=== PATIENT | male | born 1950 | race Two or more races ===

== ENCOUNTER → 2016-10-12 | Outpatient (CLI) | payer OTHER ==
[2016-10-12 12:26] LABS: Basophils # (auto) 0 uL; Basophils % (auto) 0.9 % (0.0-2.0); Eosinophils # (auto) 0.2 uL; Eosinophils % (auto) 3.9 % (0.0-7.0); Hematocrit 38.2 % (41.0-53.0); Hemoglobin 12.5 g/dL (13.5-17.5); Lymphocytes # (auto) 0.9 uL; Lymphocytes % (auto) 21.3 % (10.0-50.0); Mean Corpuscular Hgb Conc. 32.8 g/dL (32.0-36.0); Mean Corpuscular Volume 85.5 fL (80.0-100.0); Mean Platelet Volume 9.2 fL (7.4-10.4); Monocytes # (auto) 0.4 uL; Neutrophils # (auto) 2.7 uL; Neutrophils % (auto) 63.9 % (37.0-80.0); Platelet Count (auto) 345 10^3/uL (140-450); Red Cell Distribution Width 16.5 % (11.6-16.0); White Blood Cell 4.2 10^3/uL (4.4-10.8)
[2016-10-12 12:46] LABS: Vitamin B12 > 2000 pg/mL (211-911)
[2016-10-12 14:17] LABS: Temperature: 22.2 C (20.0-25.0)
== END | disposition home or self-care (01) ==
LOC: LAB 08:34
PROVIDERS: ATTEND Internal Medicine Cardiovascular Disease
DX: D64.9 Anemia, unspecified (principal); D52.9 Folate deficiency anemia, unspecified; D51.9 Vitamin B12 deficiency anemia, unspecified
CPT/HCPCS: 36415; 82607; 82746; 85025

== ENCOUNTER → 2016-11-15 | Outpatient (CLI) | payer OTHER | END | disposition home or self-care (01) | LOC: Rad HDHVI 07:47 | PROVIDERS: ATTEND Internal Medicine Cardiovascular Disease | DX: I10 Essential (primary) hypertension (principal); E78.00 Pure hypercholesterolemia, unspecified; E78.5 Hyperlipidemia, unspecified; R06.02 Shortness of breath | CPT/HCPCS: 93306 ==

== ENCOUNTER → 2016-11-24 | Outpatient (CLI) | payer OTHER | END | disposition home or self-care (01) | LOC: Rad HDHVI 08:38 | PROVIDERS: ATTEND Internal Medicine Cardiovascular Disease | DX: R06.02 Shortness of breath (principal); E78.5 Hyperlipidemia, unspecified | CPT/HCPCS: 93880 ==

== ENCOUNTER → 2016-12-04 | Outpatient (CLI) | payer OTHER ==
[~2016-12-04] VITALS: Ht 188 cm; Wt 88.9 kg
== END | disposition home or self-care (01) ==
LOC: Rad HDHVI 08:39
PROVIDERS: ATTEND Internal Medicine Cardiovascular Disease
DX: I10 Essential (primary) hypertension (principal); R20.0 Anesthesia of skin
CPT/HCPCS: 78452; 93017; 96374; A9500

== ENCOUNTER → 2016-12-06 | Outpatient (CLI) | payer OTHER | END | disposition home or self-care (01) | LOC: Rad HDHVI 13:36 | PROVIDERS: ATTEND Internal Medicine Cardiovascular Disease | DX: M47.816 Spondylosis without myelopathy or radiculopathy, lumbar region (principal); M48.06 Spinal stenosis, lumbar region; K83.8 Other specified diseases of biliary tract; M51.36 Other intervertebral disc degeneration, lumbar region | CPT/HCPCS: 72131 ==

== ENCOUNTER → 2017-04-13 | Outpatient (CLI) | payer OTHER ==
[~2017-04-13] MED LIST: IOHEXOL 350 MG/ML 100ML IJ ONE; READI-CAT 2 (BARIUM SULF)(VANILLA SMOOTHIE) 450ML ONE
[2017-04-13 09:05] VITALS: BP 157/110
[2017-04-13 09:30] VITALS: BP 141/93
[2017-04-13 10:30] VITALS: BP 148/86
== END | disposition home or self-care (01) ==
LOC: Rad HDHVI 08:58
PROVIDERS: ATTEND Internal Medicine Cardiovascular Disease
DX: R91.8 Other nonspecific abnormal finding of lung field (principal); R16.0 Hepatomegaly, not elsewhere classified; K22.5 Diverticulum of esophagus, acquired
CPT/HCPCS: 71260; 74177; 82565; G0463; Q9967

== ENCOUNTER → 2017-06-25 | Outpatient (CLI) | payer MEDICARE, OTHER ==
[2017-06-25 13:13] LABS: Eosinophils # (auto) 0.1 uL; Hemoglobin 10.7 g/dL (13.5-17.5); Lymphocytes # (auto) 1.4 uL; Mean Platelet Volume 8.1 fL (6.9-10.8); Monocytes # (auto) 0.9 uL
[2017-06-25 13:17] LABS: Basophils # (auto) 0.1 uL; Basophils % (auto) 0.6 % (0.0-2.0); Eosinophils % (auto) 1.2 % (0.0-7.0); Hematocrit 32.7 % (41.0-53.0); Lymphocytes % (auto) 16.5 % (10.0-50.0); Mean Corpuscular Hemoglobin 26.8 pg (28.0-32.0); Mean Corpuscular Hgb Conc. 32.7 g/dL (32.0-36.0); Monocytes % (auto) 9.9 % (0.0-12.0); Neutrophils # (auto) 6.2 uL; Neutrophils % (auto) 71.8 % (37.0-80.0); Nucleated Red Blood Cells % 0.1 %; Platelet Count (auto) 458 10^3/uL (140-450); White Blood Cell 8.7 10^3/uL (4.4-10.8)
[2017-06-25 13:19] LABS: Red Cell Distribution Width 21.7 % (11.8-14.3)
[2017-06-25 13:27] LABS: Albumin 2.4 g/dL (3.4-5.0); Potassium 4.3 mmol/L (3.5-5.1)
[2017-06-25 13:33] LABS: BUN/Creatinine Ratio 17.9; Calcium 8.7 mg/dL (8.5-10.1)
[2017-06-25 13:35] LABS: Bilirubin, Total 0.7 mg/dL (0.2-1.0); Total Protein 7.2 g/dL (6.4-8.2)
[2017-06-25 14:15] LABS: Anisocytosis Slight; Hypochromia Slight; Platelet Estimate Increased
== END | disposition home or self-care (01) ==
LOC: LAB 10:27
PROVIDERS: ATTEND Internal Medicine Cardiovascular Disease
DX: I10 Essential (primary) hypertension (principal); D64.9 Anemia, unspecified
CPT/HCPCS: 36415; 80053; 85025

== ENCOUNTER → 2017-07-30 | Outpatient (CLI) | payer MEDICARE, OTHER | END | disposition home or self-care (01) | LOC: Rad HDHVI 09:17 | PROVIDERS: ATTEND Internal Medicine Cardiovascular Disease | DX: M48.07 Spinal stenosis, lumbosacral region (principal); M12.88 Other specific arthropathies, not elsewhere classified, other specified site | CPT/HCPCS: 72131 ==

== ENCOUNTER 2018-01-11 14:29 | Inpatient (IN) | payer MEDICARE, OTHER ==
[~2018-01-11] VITALS: Ht 185.4 cm; Wt 101.6 kg
[2018-01-11] MEDS ORDERED: SODIUM CHLORIDE 0.9% 500 ML IV ONE (14:42)
[2018-01-11] MEDS ORDERED: NITROGLYCERIN 0.4 MG SL TAB SL PRN (15:30)
[2018-01-11] MEDS ORDERED: ONDANSETRON HCL 4 MG/2 ML VIAL IV PRN (15:30)
[2018-01-11 15:33] LABS: Basophils # (auto) 0 uL; Basophils % (auto) 0.2 % (0.0-2.0); Eosinophils # (auto) 0.2 uL; Eosinophils % (auto) 1.4 % (0.0-7.0); Hematocrit 14.1 % (41.0-53.0); Lymphocytes # (auto) 1.3 uL; Lymphocytes % (auto) 7.8 % (10.0-50.0); Mean Corpuscular Hgb Conc. 26.6 g/dL (32.0-36.0); Mean Corpuscular Volume 60.3 fL (80.0-100.0); Monocytes # (auto) 0.8 uL; Monocytes % (auto) 4.4 % (0.0-12.0); Neutrophils # (auto) 14.7 uL; Neutrophils % (auto) 86.2 % (37.0-80.0); Nucleated Red Blood Cells % 0.9 %; Platelet Count (auto) 692 10^3/uL (140-450); Red Blood Cells 2.34 10^6/uL (4.5-5.90); White Blood Cell 17.1 10^3/uL (4.4-10.8)
[2018-01-11 15:34] LABS: Red Cell Distribution Width 23.7 % (11.8-14.3)
[2018-01-11 15:41] LABS: Hemoglobin 3.8 g/dL (13.5-17.5)
[2018-01-11 15:56] LABS: Albumin 1.4 g/dL (3.4-5.0); BUN/Creatinine Ratio 36.7; Bilirubin, Total 0.8 mg/dL (0.2-1.0); Calcium 7.8 mg/dL (8.5-10.1); Magnesium 2.6 mg/dL (1.6-2.6); Potassium 4.7 mmol/L (3.5-5.1); Total Protein 6.2 g/dL (6.4-8.2)
[2018-01-11] MEDS: fentaNYL 100MCG/HR 100 MCG/HR PAT TD SCH (16:52)
[2018-01-11] MEDS: PIPERACILLIN-TAZO 4.5GM 100 ML IV SCH ×2 (16:54→23:30)
[2018-01-11] MEDS: MEPERIDINE HCL (50 MG/ML) 1 ML VIAL IV PRN (16:55)
[2018-01-11 18:51] VITALS: BP 117/74
[2018-01-11] MEDS: MORPHINE SULF 30 mg ER tab PO SCH (21:20)
[2018-01-11 22:02] VITALS: BP 105/69
[2018-01-11 22:16] VITALS: BP 108/64
[2018-01-11 23:01] VITALS: BP 104/68
[2018-01-11 23:40] VITALS: BP 117/75
[2018-01-12] VITALS (9 sets, daily range): BP systolic 103–139; BP diastolic 63–74
[2018-01-12] MEDS: MEPERIDINE HCL (50 MG/ML) 1 ML VIAL IV PRN ×2 (01:47→11:27)
[2018-01-12] MEDS: MORPHINE SULF 30 mg ER tab PO SCH ×4 (06:39→21:30)
[2018-01-12] MEDS: PIPERACILLIN-TAZO 4.5GM 100 ML IV SCH ×3 (07:34→23:16)
[2018-01-12 08:57] LABS: Basophils # (auto) 0.1 uL; Neutrophils # (auto) 19.8 uL
[2018-01-12 08:59] LABS: Basophils % (auto) 0.4 % (0.0-2.0); Eosinophils # (auto) 0.3 uL; Eosinophils % (auto) 1.5 % (0.0-7.0); Hematocrit 20.7 % (41.0-53.0); Lymphocytes # (auto) 1.6 uL; Lymphocytes % (auto) 6.9 % (10.0-50.0); Mean Corpuscular Hemoglobin 20.6 pg (28.0-32.0); Mean Corpuscular Hgb Conc. 30.7 g/dL (32.0-36.0); Monocytes % (auto) 4.3 % (0.0-12.0); Neutrophils % (auto) 86.9 % (37.0-80.0); Platelet Count (auto) 584 10^3/uL (140-450); Red Blood Cells 3.09 10^6/uL (4.5-5.90); White Blood Cell 22.8 10^3/uL (4.4-10.8)
[2018-01-12 09:09] LABS: Hemoglobin 6.3 g/dL (13.5-17.5); Red Cell Distribution Width 28.7 % (11.8-14.3)
[2018-01-12 09:18] LABS: Calcium 7.4 mg/dL (8.5-10.1); Potassium 4.6 mmol/L (3.5-5.1)
[2018-01-12] MEDS ORDERED: HYDR-4683 PO (12:24)
[2018-01-12] MEDS ORDERED: GABA-339 PO (12:24)
[2018-01-12] MEDS ORDERED: RIVA20TA PO (12:24)
[2018-01-12] MEDS ORDERED: FENT75DI2 TD (12:24)
[2018-01-12] MEDS ORDERED: BIS10RS PR (12:24)
[2018-01-12] MEDS ORDERED: CYCL1TAB18 PO (12:24)
[2018-01-12] MEDS ORDERED: FURO20TA3 PO (12:24)
[2018-01-12] MEDS ORDERED: LORA2TAB89 PO (12:24)
[2018-01-12] MEDS ORDERED: TEMA30CA5 PO (12:24)
[2018-01-12] MEDS ORDERED: PRE5T PO (12:24)
[2018-01-12] MEDS ORDERED: MORP60TA25 PO (18:08)
[2018-01-13 05:00] VITALS: BP 122/39
[2018-01-13] MEDS: MORPHINE SULF 30 mg ER tab PO SCH ×3 (05:48→22:00)
[2018-01-13] MEDS: PIPERACILLIN-TAZO 4.5GM 100 ML IV SCH (07:00)
[2018-01-13 08:43] VITALS: BP 122/64
[2018-01-13] MEDS: BOOST PLUS 8 ounce PO SCH ×3 (08:47→18:02)
[2018-01-13] MEDS: fentaNYL 100MCG/HR 100 MCG/HR PAT TD SCH (11:39)
[2018-01-13 13:50] VITALS: BP 116/67
[2018-01-13 17:16] VITALS: BP 131/79
[2018-01-13] MEDS ORDERED: VANCOMYCIN PER PHARMACY 1,000 MG IV SCH (19:00)
[2018-01-13] MEDS: VANCOMYCIN 1,250 MG in D5W 5% 250 ML IV SCH (21:54)
[2018-01-13 22:00] VITALS: BP 124/98
[2018-01-13] MEDS: D5W 5% IV SCH (23:26)
[2018-01-13] MEDS: PIPERACILLIN TAZO IV SCH (23:26)
[2018-01-14 05:00] VITALS: BP 113/76
[2018-01-14] MEDS: D5W 5% IV SCH ×3 (06:49→23:21)
[2018-01-14] MEDS: PIPERACILLIN TAZO IV SCH ×3 (06:49→23:21)
[2018-01-14 06:51] LABS: Basophils # (auto) 0 uL; Lymphocytes # (auto) 1.2 uL; Nucleated Red Blood Cells % 0.2 %
[2018-01-14 06:54] LABS: Basophils % (auto) 0.1 % (0.0-2.0); Eosinophils # (auto) 0.3 uL; Eosinophils % (auto) 1.1 % (0.0-7.0); Hematocrit 23.8 % (41.0-53.0); Lymphocytes % (auto) 5.1 % (10.0-50.0); Mean Corpuscular Hemoglobin 20.9 pg (28.0-32.0); Mean Corpuscular Volume 72.1 fL (80.0-100.0); Monocytes # (auto) 1.3 uL; Monocytes % (auto) 5.5 % (0.0-12.0); Neutrophils # (auto) 20.6 uL; Neutrophils % (auto) 88.2 % (37.0-80.0); Platelet Count (auto) 559 10^3/uL (140-450); Red Blood Cells 3.29 10^6/uL (4.5-5.90); White Blood Cell 23.3 10^3/uL (4.4-10.8)
[2018-01-14 06:57] LABS: Red Cell Distribution Width 29.9 % (11.8-14.3)
[2018-01-14 06:59] LABS: Hemoglobin 6.9 g/dL (13.5-17.5)
[2018-01-14 07:01] LABS: BUN/Creatinine Ratio 39.3; Calcium 7.2 mg/dL (8.5-10.1)
[2018-01-14 09:00] VITALS: BP_SYST 100; BP_SYST 119; BP_DIAS 50; BP_DIAS 73
[2018-01-14] MEDS: BOOST PLUS 8 ounce PO SCH ×3 (10:50→18:02)
[2018-01-14] MEDS: VANCOMYCIN 1,250 MG in D5W 5% 250 ML IV SCH ×2 (10:50→21:02)
[2018-01-14 13:00] VITALS: BP 112/65
[2018-01-14] MEDS: PRO-STAT 64 30ML PO SCH ×2 (14:03→18:02)
[2018-01-14] MEDS: MORPHINE SULF 30 mg ER tab PO SCH ×2 (14:03→22:00)
[2018-01-14] MEDS: LORazepam 0.5 MG TAB PO PRN (14:36)
[2018-01-14] MEDS: fentaNYL 100MCG/HR 100 MCG/HR PAT TD SCH (15:33)
[2018-01-14 17:00] VITALS: BP 101/67
[2018-01-14 22:00] VITALS: BP 103/53
[2018-01-15] VITALS (7 sets, daily range): BP systolic 119–140; BP diastolic 67–85
[2018-01-15] MEDS: PIPERACILLIN TAZO IV SCH ×3 (05:48→23:00)
[2018-01-15] MEDS: D5W 5% IV SCH ×3 (05:48→23:00)
[2018-01-15] MEDS: MORPHINE SULF 30 mg ER tab PO SCH ×3 (06:28→22:09)
[2018-01-15] MEDS: BOOST PLUS 8 ounce PO SCH ×3 (08:11→18:45)
[2018-01-15] MEDS: PRO-STAT 64 30ML PO SCH ×3 (08:11→18:45)
[2018-01-15] MEDS: VANCOMYCIN 1,250 MG in D5W 5% 250 ML IV SCH (10:07)
[2018-01-15 13:04] LABS: Basophils # (auto) 0 uL; Basophils % (auto) 0.1 % (0.0-2.0); Eosinophils # (auto) 0.1 uL; Hemoglobin 7.3 g/dL (13.5-17.5); Lymphocytes # (auto) 0.7 uL; Monocytes # (auto) 0.9 uL; Neutrophils # (auto) 21.2 uL; Nucleated Red Blood Cells % 0.2 %
[2018-01-15 13:06] LABS: Eosinophils % (auto) 0.3 % (0.0-7.0); Hematocrit 24.9 % (41.0-53.0); Mean Corpuscular Hemoglobin 20.7 pg (28.0-32.0); Mean Corpuscular Hgb Conc. 29.5 g/dL (32.0-36.0); Mean Corpuscular Volume 70.2 fL (80.0-100.0); Monocytes % (auto) 3.9 % (0.0-12.0); Neutrophils % (auto) 92.7 % (37.0-80.0); Platelet Count (auto) 542 10^3/uL (140-450); Red Blood Cells 3.54 10^6/uL (4.5-5.90); White Blood Cell 22.8 10^3/uL (4.4-10.8)
[2018-01-15 13:17] LABS: Red Cell Distribution Width 31.7 % (11.8-14.3)
[2018-01-15 13:35] LABS: BUN/Creatinine Ratio 37.5; Calcium 7.6 mg/dL (8.5-10.1); Potassium 3.8 mmol/L (3.5-5.1)
[2018-01-15] MEDS ORDERED: VANCOMYCIN 1,250 MG in D5W 5% 250 ML IV SCH (23:00)
[2018-01-16] VITALS (13 sets, daily range): BP systolic 106–128; BP diastolic 61–83
[2018-01-16] MEDS: PIPERACILLIN TAZO IV SCH ×3 (06:38→23:00)
[2018-01-16] MEDS: MORPHINE SULF 30 mg ER tab PO SCH ×3 (06:38→21:41)
[2018-01-16] MEDS: D5W 5% IV SCH ×3 (06:38→23:00)
[2018-01-16 08:55] LABS: Eosinophils # (auto) 0.3 uL; Nucleated Red Blood Cells % 0.1 %; Platelet Count (auto) 462 10^3/uL (140-450)
[2018-01-16 08:57] LABS: Basophils # (auto) 0 uL; Basophils % (auto) 0.3 % (0.0-2.0); Eosinophils % (auto) 1.7 % (0.0-7.0); Hematocrit 21.8 % (41.0-53.0); Lymphocytes # (auto) 1.4 uL; Lymphocytes % (auto) 7.3 % (10.0-50.0); Mean Corpuscular Hemoglobin 20.3 pg (28.0-32.0); Mean Corpuscular Hgb Conc. 28.8 g/dL (32.0-36.0); Mean Corpuscular Volume 70.4 fL (80.0-100.0); Monocytes % (auto) 5.2 % (0.0-12.0); Neutrophils % (auto) 85.5 % (37.0-80.0); White Blood Cell 18.8 10^3/uL (4.4-10.8)
[2018-01-16 09:02] LABS: Calcium 7.4 mg/dL (8.5-10.1); Potassium 3.6 mmol/L (3.5-5.1)
[2018-01-16 09:44] LABS: Red Cell Distribution Width 31.4 % (11.8-14.3)
[2018-01-16 09:47] LABS: Hemoglobin 6.3 g/dL (13.5-17.5)
[2018-01-16] MEDS ORDERED: VANCOMYCIN 1,250 MG in D5W 5% 250 ML IV SCH ×2 (10:00→20:00)
[2018-01-16] MEDS: PRO-STAT 64 30ML PO SCH ×3 (10:07→18:02)
[2018-01-16] MEDS: BOOST PLUS 8 ounce PO SCH ×3 (10:07→18:02)
[2018-01-16] MEDS: MEPERIDINE HCL (50 MG/ML) 1 ML VIAL IV PRN (19:04)
[2018-01-16] MEDS: VANCOMYCIN 1,250 MG in D5W 5% 250 ML IV SCH (21:10)
[2018-01-17] VITALS (8 sets, daily range): BP systolic 114–132; BP diastolic 66–81
[2018-01-17] MEDS: MORPHINE SULF 30 mg ER tab PO SCH ×3 (05:41→22:58)
[2018-01-17] MEDS: PIPERACILLIN TAZO IV SCH ×2 (06:01→14:51)
[2018-01-17] MEDS: D5W 5% IV SCH ×2 (06:01→14:51)
[2018-01-17 06:53] LABS: Basophils # (auto) 0 uL; Basophils % (auto) 0.1 % (0.0-2.0); Eosinophils # (auto) 0.4 uL; Hemoglobin 9.4 g/dL (13.5-17.5); Lymphocytes % (auto) 6.4 % (10.0-50.0); Nucleated Red Blood Cells % 0.1 %
[2018-01-17 06:55] LABS: Eosinophils % (auto) 2.1 % (0.0-7.0); Hematocrit 29.9 % (41.0-53.0); Lymphocytes # (auto) 1.1 uL; Mean Corpuscular Hemoglobin 23.2 pg (28.0-32.0); Mean Corpuscular Hgb Conc. 31.3 g/dL (32.0-36.0); Mean Corpuscular Volume 74.1 fL (80.0-100.0); Monocytes % (auto) 5.4 % (0.0-12.0); Neutrophils # (auto) 15.3 uL; Platelet Count (auto) 394 10^3/uL (140-450); Red Blood Cells 4.04 10^6/uL (4.5-5.90); White Blood Cell 17.8 10^3/uL (4.4-10.8)
[2018-01-17 07:16] LABS: BUN/Creatinine Ratio 41.2; Calcium 7.3 mg/dL (8.5-10.1); Potassium 3.6 mmol/L (3.5-5.1)
[2018-01-17 07:34] LABS: Red Cell Distribution Width 29.2 % (11.8-14.3)
[2018-01-17] MEDS: BOOST PLUS 8 ounce PO SCH ×3 (08:04→17:33)
[2018-01-17] MEDS: PRO-STAT 64 30ML PO SCH ×3 (08:04→17:33)
[2018-01-17] MEDS: VANCOMYCIN 1,250 MG in D5W 5% 250 ML IV SCH ×2 (08:04→17:33)
[2018-01-17] MEDS: MEPERIDINE HCL (50 MG/ML) 1 ML VIAL IV PRN ×4 (08:56→23:03)
[2018-01-17] MEDS: fentaNYL 100MCG/HR 100 MCG/HR PAT TD SCH (16:25)
[2018-01-17] MEDS: SALINE 0.65 % NASAL SPRAY 45ML BOTTLE EACHNOSTRI SCH ×2 (18:46→22:58)
[2018-01-18] MEDS: D5W 5% IV SCH ×3 (00:53→17:39)
[2018-01-18] MEDS: PIPERACILLIN TAZO IV SCH ×3 (00:53→17:39)
[2018-01-18 05:00] VITALS: BP 128/86
[2018-01-18] MEDS: VANCOMYCIN 1,250 MG in D5W 5% 250 ML IV SCH ×2 (05:24→14:00)
[2018-01-18] MEDS: MORPHINE SULF 30 mg ER tab PO SCH ×3 (06:31→21:50)
[2018-01-18] MEDS: SALINE 0.65 % NASAL SPRAY 45ML BOTTLE EACHNOSTRI SCH ×4 (06:32→21:50)
[2018-01-18 06:34] LABS: Basophils # (auto) 0 uL; Basophils % (auto) 0.2 % (0.0-2.0); Eosinophils # (auto) 0.4 uL; Eosinophils % (auto) 2.6 % (0.0-7.0); Hematocrit 27.1 % (41.0-53.0); Hemoglobin 8.5 g/dL (13.5-17.5); Lymphocytes # (auto) 0.9 uL; Lymphocytes % (auto) 5.6 % (10.0-50.0); Nucleated Red Blood Cells % 0.1 %
[2018-01-18 06:43] LABS: Mean Corpuscular Hemoglobin 23.3 pg (28.0-32.0); Mean Corpuscular Hgb Conc. 31.4 g/dL (32.0-36.0); Mean Corpuscular Volume 74.1 fL (80.0-100.0); Monocytes # (auto) 0.8 uL; Monocytes % (auto) 4.8 % (0.0-12.0); Neutrophils # (auto) 14.3 uL; Neutrophils % (auto) 86.8 % (37.0-80.0); Platelet Count (auto) 339 10^3/uL (140-450); Red Blood Cells 3.65 10^6/uL (4.5-5.90); White Blood Cell 16.5 10^3/uL (4.4-10.8)
[2018-01-18 06:47] LABS: BUN/Creatinine Ratio 43.8; Calcium 7.2 mg/dL (8.5-10.1); Potassium 3.5 mmol/L (3.5-5.1)
[2018-01-18 06:58] LABS: Red Cell Distribution Width 29.5 % (11.8-14.3)
[2018-01-18 08:00] VITALS: BP 137/82
[2018-01-18] MEDS: PRO-STAT 64 30ML PO SCH ×3 (08:00→18:25)
[2018-01-18] MEDS: BOOST PLUS 8 ounce PO SCH ×3 (08:00→18:25)
[2018-01-18] MEDS: MEPERIDINE HCL (50 MG/ML) 1 ML VIAL IV PRN ×5 (08:45→23:35)
[2018-01-18 12:00] VITALS: BP 106/75
[2018-01-18 17:00] VITALS: BP 110/79
[2018-01-18 22:00] VITALS: BP 112/79
[2018-01-18] MEDS: VANCOMYCIN 1GM/250ML 250 ML IV SCH (23:34)
[2018-01-19] VITALS (7 sets, daily range): BP systolic 103–126; BP diastolic 69–78
[2018-01-19] MEDS: PIPERACILLIN TAZO IV SCH ×3 (00:30→16:50)
[2018-01-19] MEDS: D5W 5% IV SCH ×3 (00:30→16:50)
[2018-01-19 06:42] LABS: Basophils # (auto) 0 uL; Eosinophils # (auto) 0.4 uL; Hemoglobin 8.7 g/dL (13.5-17.5); Lymphocytes # (auto) 1.1 uL; Mean Corpuscular Hemoglobin 23.1 pg (28.0-32.0); Monocytes # (auto) 0.7 uL
[2018-01-19] MEDS: SALINE 0.65 % NASAL SPRAY 45ML BOTTLE EACHNOSTRI SCH ×4 (06:42→21:44)
[2018-01-19] MEDS: MEPERIDINE HCL (50 MG/ML) 1 ML VIAL IV PRN ×5 (06:43→22:03)
[2018-01-19 06:44] LABS: Basophils % (auto) 0.1 % (0.0-2.0); Eosinophils % (auto) 2.5 % (0.0-7.0); Hematocrit 28.5 % (41.0-53.0); Lymphocytes % (auto) 7.1 % (10.0-50.0); Mean Corpuscular Hgb Conc. 30.5 g/dL (32.0-36.0); Mean Corpuscular Volume 75.6 fL (80.0-100.0); Monocytes % (auto) 4.3 % (0.0-12.0); Neutrophils # (auto) 13.3 uL; Platelet Count (auto) 327 10^3/uL (140-450); Red Blood Cells 3.77 10^6/uL (4.5-5.90); White Blood Cell 15.5 10^3/uL (4.4-10.8)
[2018-01-19] MEDS: MORPHINE SULF 30 mg ER tab PO SCH ×3 (06:47→21:44)
[2018-01-19 06:53] LABS: Red Cell Distribution Width 30.2 % (11.8-14.3)
[2018-01-19 06:57] LABS: Calcium 7.3 mg/dL (8.5-10.1); Potassium 3.6 mmol/L (3.5-5.1)
[2018-01-19] MEDS: PRO-STAT 64 30ML PO SCH ×3 (08:32→18:19)
[2018-01-19] MEDS: BOOST PLUS 8 ounce PO SCH ×3 (08:32→18:18)
[2018-01-19] MEDS: VANCOMYCIN 1GM/250ML 250 ML IV SCH (23:06)
[2018-01-20] MEDS: D5W 5% IV SCH ×3 (00:17→16:44)
[2018-01-20] MEDS: PIPERACILLIN TAZO IV SCH ×3 (00:17→16:44)
[2018-01-20] MEDS: MEPERIDINE HCL (50 MG/ML) 1 ML VIAL IV PRN ×6 (00:41→13:42)
[2018-01-20 05:00] VITALS: BP 118/76
[2018-01-20] MEDS: SALINE 0.65 % NASAL SPRAY 45ML BOTTLE EACHNOSTRI SCH ×4 (05:56→21:37)
[2018-01-20] MEDS: MORPHINE SULF 30 mg ER tab PO SCH ×3 (05:56→21:37)
[2018-01-20 09:00] VITALS: BP 111/74
[2018-01-20] MEDS: PRO-STAT 64 30ML PO SCH ×3 (09:15→18:00)
[2018-01-20] MEDS: BOOST PLUS 8 ounce PO SCH ×3 (09:15→18:00)
[2018-01-20 09:57] LABS: Basophils # (auto) 0 uL; Eosinophils # (auto) 0.3 uL; Hemoglobin 8.4 g/dL (13.5-17.5); Monocytes # (auto) 0.9 uL; Neutrophils # (auto) 15.1 uL
[2018-01-20 09:59] LABS: Basophils % (auto) 0.1 % (0.0-2.0); Eosinophils % (auto) 1.7 % (0.0-7.0); Hematocrit 27.6 % (41.0-53.0); Lymphocytes # (auto) 0.7 uL; Lymphocytes % (auto) 4.2 % (10.0-50.0); Mean Corpuscular Hemoglobin 23.4 pg (28.0-32.0); Mean Corpuscular Hgb Conc. 30.5 g/dL (32.0-36.0); Mean Corpuscular Volume 76.7 fL (80.0-100.0); Monocytes % (auto) 5.1 % (0.0-12.0); Neutrophils % (auto) 88.9 % (37.0-80.0); Platelet Count (auto) 305 10^3/uL (140-450); Red Blood Cells 3.59 10^6/uL (4.5-5.90)
[2018-01-20 10:10] LABS: Calcium 7.7 mg/dL (8.5-10.1); Potassium 3.9 mmol/L (3.5-5.1)
[2018-01-20 13:00] VITALS: BP 117/74
[2018-01-20] MEDS: fentaNYL 100MCG/HR 100 MCG/HR PAT TD SCH (16:44)
[2018-01-20 17:50] VITALS: BP 125/78
[2018-01-20] MEDS: MORPHINE SULF INJ 2 MG/ML SYRINGE 1ML IV PRN ×2 (18:19→23:07)
[2018-01-20 20:00] VITALS: BP 106/67
[2018-01-20] MEDS: ASCORBIC ACID 500 MG TAB PO SCH (21:37)
[2018-01-20 22:30] VITALS: BP 106/67
[2018-01-20] MEDS: VANCOMYCIN 1GM/250ML 250 ML IV SCH (23:07)
[2018-01-21] VITALS (7 sets, daily range): BP systolic 101–126; BP diastolic 63–84
[2018-01-21] MEDS: PIPERACILLIN TAZO IV SCH ×3 (00:56→17:50)
[2018-01-21] MEDS: D5W 5% IV SCH ×3 (00:56→17:50)
[2018-01-21] MEDS: SALINE 0.65 % NASAL SPRAY 45ML BOTTLE EACHNOSTRI SCH ×3 (06:05→18:00)
[2018-01-21] MEDS: MORPHINE SULF 30 mg ER tab PO SCH ×3 (06:06→22:00)
[2018-01-21 06:38] LABS: Basophils # (auto) 0 uL; Eosinophils # (auto) 0.4 uL; Monocytes # (auto) 0.7 uL; Monocytes % (auto) 3.8 % (0.0-12.0); Neutrophils # (auto) 15.6 uL; Nucleated Red Blood Cells % 0.1 %; White Blood Cell 17.6 10^3/uL (4.4-10.8)
[2018-01-21 06:40] LABS: Basophils % (auto) 0.2 % (0.0-2.0); Eosinophils % (auto) 2.4 % (0.0-7.0); Hematocrit 29.2 % (41.0-53.0); Lymphocytes # (auto) 0.9 uL; Lymphocytes % (auto) 5.3 % (10.0-50.0); Mean Corpuscular Hemoglobin 23.7 pg (28.0-32.0); Mean Corpuscular Hgb Conc. 30.7 g/dL (32.0-36.0); Mean Corpuscular Volume 77.1 fL (80.0-100.0); Neutrophils % (auto) 88.3 % (37.0-80.0); Platelet Count (auto) 344 10^3/uL (140-450); Red Blood Cells 3.78 10^6/uL (4.5-5.90)
[2018-01-21 06:49] LABS: Red Cell Distribution Width 30.7 % (11.8-14.3)
[2018-01-21] MEDS: MORPHINE SULF INJ 2 MG/ML SYRINGE 1ML IV PRN (06:56)
[2018-01-21 06:57] LABS: Calcium 7.7 mg/dL (8.5-10.1)
[2018-01-21] MEDS: PRO-STAT 64 30ML PO SCH ×3 (08:00→18:00)
[2018-01-21] MEDS: BOOST PLUS 8 ounce PO SCH ×3 (08:24→18:00)
[2018-01-21] MEDS: LORazepam 0.5 MG TAB PO PRN (10:14)
[2018-01-21] MEDS: ASCORBIC ACID 500 MG TAB PO SCH ×2 (10:14→22:00)
[2018-01-21] MEDS: MULTIPLE VITAMINS W/ MINERALS TAB PO SCH (10:14)
[2018-01-21 11:03] LABS: Eosinophils # (auto) 0.1 uL; Hematocrit 27.4 % (41.0-53.0); Hemoglobin 8.4 g/dL (13.5-17.5); Lymphocytes # (auto) 0.5 uL; Lymphocytes % (auto) 2.6 % (10.0-50.0); Monocytes # (auto) 0.7 uL; Neutrophils # (auto) 17.3 uL
[2018-01-21 11:05] LABS: Basophils # (auto) 0.1 uL; Basophils % (auto) 0.5 % (0.0-2.0); Eosinophils % (auto) 0.8 % (0.0-7.0); Mean Corpuscular Hemoglobin 23.7 pg (28.0-32.0); Mean Corpuscular Hgb Conc. 30.8 g/dL (32.0-36.0); Mean Corpuscular Volume 77.1 fL (80.0-100.0); Neutrophils % (auto) 92.1 % (37.0-80.0); Platelet Count (auto) 338 10^3/uL (140-450); Red Blood Cells 3.55 10^6/uL (4.5-5.90); White Blood Cell 18.8 10^3/uL (4.4-10.8)
[2018-01-21 11:09] LABS: Red Cell Distribution Width 30.8 % (11.8-14.3)
[2018-01-21 11:21] LABS: Albumin 1.1 g/dL (3.4-5.0); BUN/Creatinine Ratio 28.1; Bilirubin, Total 3.2 mg/dL (0.2-1.0); Calcium 7.3 mg/dL (8.5-10.1); Total Protein 5.3 g/dL (6.4-8.2)
[2018-01-21] MEDS: VANCOMYCIN 1GM/250ML 250 ML IV SCH (23:00)
[2018-01-22] MEDS ORDERED: ACETAMINOPHEN 325 MG TAB PO ONE (00:30)
[2018-01-22] MEDS: PIPERACILLIN TAZO IV SCH ×2 (01:20→09:39)
[2018-01-22] MEDS: D5W 5% IV SCH ×2 (01:20→09:39)
[2018-01-22] MEDS: SALINE 0.65 % NASAL SPRAY 45ML BOTTLE EACHNOSTRI SCH ×3 (01:21→12:00)
[2018-01-22 05:00] VITALS: BP 131/81
[2018-01-22] MEDS: MORPHINE SULF 30 mg ER tab PO SCH ×2 (06:00→14:03)
[2018-01-22 06:40] LABS: Basophils # (auto) 0 uL; Eosinophils # (auto) 0.4 uL; Hemoglobin 8.4 g/dL (13.5-17.5); Lymphocytes # (auto) 0.7 uL; Nucleated Red Blood Cells % 0.1 %
[2018-01-22 06:43] LABS: Basophils % (auto) 0.3 % (0.0-2.0); Eosinophils % (auto) 2.1 % (0.0-7.0); Hematocrit 27.5 % (41.0-53.0); Lymphocytes % (auto) 4.1 % (10.0-50.0); Mean Corpuscular Hemoglobin 23.4 pg (28.0-32.0); Mean Corpuscular Hgb Conc. 30.5 g/dL (32.0-36.0); Monocytes # (auto) 0.6 uL; Monocytes % (auto) 3.4 % (0.0-12.0); Neutrophils # (auto) 14.9 uL; Neutrophils % (auto) 90.1 % (37.0-80.0); Platelet Count (auto) 309 10^3/uL (140-450); Red Blood Cells 3.57 10^6/uL (4.5-5.90); White Blood Cell 16.6 10^3/uL (4.4-10.8)
[2018-01-22 06:44] LABS: Red Cell Distribution Width 30.7 % (11.8-14.3)
[2018-01-22 06:52] LABS: Albumin 1.1 g/dL (3.4-5.0); Calcium 7.1 mg/dL (8.5-10.1); Potassium 3.8 mmol/L (3.5-5.1)
[2018-01-22 06:54] LABS: BUN/Creatinine Ratio 31.4
[2018-01-22 06:57] LABS: Bilirubin, Total 3.2 mg/dL (0.2-1.0); Total Protein 5.3 g/dL (6.4-8.2)
[2018-01-22] MEDS: PRO-STAT 64 30ML PO SCH ×2 (08:00→12:00)
[2018-01-22] MEDS: BOOST PLUS 8 ounce PO SCH ×2 (08:00→12:00)
[2018-01-22 08:54] VITALS: BP 126/75
[2018-01-22] MEDS: MORPHINE SULF INJ 2 MG/ML SYRINGE 1ML IV PRN (09:41)
[2018-01-22] MEDS: MULTIPLE VITAMINS W/ MINERALS TAB PO SCH (09:41)
[2018-01-22] MEDS: ASCORBIC ACID 500 MG TAB PO SCH (09:41)
[2018-01-22 12:06] VITALS: BP 121/78
[2018-01-22 13:00] VITALS: BP 121/78
== END 2018-01-22 14:20 | disposition hospice, home (50) | DRG 871 ==
LOC: ER 14:29 → EDBD 14:29 → OVERFLOW 14:30 → WEST WING 18:18
PROVIDERS: ADMIT Internal Medicine Cardiovascular Disease; ATTEND Internal Medicine Cardiovascular Disease
PROC: 30233N1 Transfusion of Nonautologous Red Blood Cells into Peripheral Vein, Percutaneous Approach (ICD-10-PCS; principal; 2018-01-11)
DX: A41.59 Other Gram-negative sepsis (principal); L89.134 Pressure ulcer of right lower back, stage 4; C78.7 Secondary malignant neoplasm of liver and intrahepatic bile duct; C25.9 Malignant neoplasm of pancreas, unspecified; C79.51 Secondary malignant neoplasm of bone; C79.89 Secondary malignant neoplasm of other specified sites; Z51.5 Encounter for palliative care; E86.9 Volume depletion, unspecified; Z66 Do not resuscitate; D64.9 Anemia, unspecified; Z86.73 Personal history of transient ischemic attack (TIA), and cerebral infarction without residual deficits
CPT/HCPCS: 36415; 72131; 73700; 80048; 80053; 80202; 83735; 85025; 86850; 86900; 86901; 86920; 87040; 87077; 87186; 94761; 96360; J2543; J7060